=== PATIENT | female | born 1980 | race Caucasian/White ===

== ENCOUNTER 2017-07-31 18:10 | Emergency (ER) | payer SELFPAY ==
[~2017-07-31] VITALS: Ht 149.9 cm; Wt 99.8 kg
[2017-07-31 18:16] VITALS: BP_SYST 140
[2017-07-31] MEDS: LORazepam 1 MG TABLET PO ONE (18:44)
[2017-07-31] MEDS: KETOROLAC TROMETHAMINE 60 MG/2 ML VIAL IM ONE (18:45)
[2017-07-31] MEDS: HYDROcodone/ACETAMIN 5-325 MG TAB (NORCO/ VICODIN) PO ONE (18:58)
[2017-07-31 19:02] VITALS: BP_SYST 143
== END 2017-07-31 18:58 | disposition home or self-care (01) ==
LOC: SED 18:10
DX: R07.9 Chest pain, unspecified (principal); Z86.718 Personal history of other venous thrombosis and embolism; Z86.711 Personal history of pulmonary embolism; Z88.0 Allergy status to penicillin; Z88.8 Allergy status to other drugs, medicaments and biological substances
CPT/HCPCS: 81025; 93005; 99283; J1885